=== PATIENT | male | born 1965 | race Caucasian/White ===

== ENCOUNTER 2018-03-02 06:28 | Day surgery (SDC) | payer OTHER ==
[~2018-03-02 06:28] MED LIST: CEFAZOLIN 2 GM/50 ML (PMX) 50 ML IVPB; SOD CHLORIDE 0.9% 1,000 ML IV
== END 2018-03-02 07:50 | disposition home or self-care (01) ==
LOC: SDS 06:28
DX: K40.90 Unilateral inguinal hernia, without obstruction or gangrene, not specified as recurrent (principal); Z53.8 Procedure and treatment not carried out for other reasons
CPT/HCPCS: J0690

== ENCOUNTER 2018-03-09 08:50 | Day surgery (SDC) | payer OTHER ==
[2018-03-09] MEDS: CEFAZOLIN 2 GM/50 ML (PMX) 50 ML IVPB (07:00)
[~2018-03-09 08:50] MED LIST changes: -CEFAZOLIN 2 GM/50 ML (PMX) 50 ML IVPB; +LIDOCAINE 2% (SDV) 5 ML INJ; -SOD CHLORIDE 0.9% 1,000 ML IV
[2018-03-09] MEDS: SOD CHLORIDE 0.9% 1,000 ML IV (09:38)
[2018-03-09] MEDS ORDERED: HYDROmorphONE 1 MG/5 ML IV SYRINGE IV ×3 (10:30)
[2018-03-09] MEDS ORDERED: DIPHENHYDRAMINE 50 MG INJ IV (10:30)
[2018-03-09] MEDS ORDERED: METOCLOPRAMIDE 10 MG INJ IV (10:30)
[2018-03-09] MEDS ORDERED: ALBUTEROL 0.083% (NEB) 2.5 MG/3 ML AMP HHN (10:30)
[2018-03-09] MEDS ORDERED: FENTAnyl 50 MCG/ML VIAL IV (10:30)
[2018-03-09] MEDS ORDERED: FENTAnyl 50 MCG/ML VIAL (10:55)
[2018-03-09] MEDS ORDERED: ROPIVACAINE 0.5 % 30 ML VIAL (10:55)
[2018-03-09] MEDS ORDERED: CEFAZOLIN 1 GM INJ (11:20)
[2018-03-09] MEDS ORDERED: ROCURONIUM 50 MG INJ (11:20)
[2018-03-09] MEDS ORDERED: PROPOFOL 20 ML (11:20)
[2018-03-09] MEDS ORDERED: SUGAMMADEX SODIUM 200 MG/2 ML VIAL IV (11:20)
[2018-03-09] MEDS ORDERED: SUCCINYLCHOLINE CHLORIDE 100 MG/5 ML SYG IV (11:20)
[2018-03-09] MEDS: ONDANSETRON 4 MG INJ IV (12:07)
[2018-03-09] MEDS: MEPERIDINE 25 MG INJ IV (12:08)
[2018-03-09] MEDS: FENTAnyl 50 MCG/ML VIAL IV (12:08)
[2018-03-09] MEDS: HYDROCODONE/APAP (5/325) TAB PO (13:07)
== END 2018-03-09 13:35 | disposition home or self-care (01) ==
LOC: SDS 08:50
DX: K40.30 Unilateral inguinal hernia, with obstruction, without gangrene, not specified as recurrent (principal)
CPT/HCPCS: 49507

== ENCOUNTER 2018-04-20 16:27 | Emergency (ER) | payer OTHER ==
[2018-04-20] MEDS: HYDROCODONE/APAP (10/325) TAB PO (17:42)
== END 2018-04-20 19:30 | disposition home or self-care (01) ==
LOC: FTE 16:27
DX: S32.2XXA Fracture of coccyx, initial encounter for closed fracture (principal); F17.210 Nicotine dependence, cigarettes, uncomplicated; I10 Essential (primary) hypertension; W22.8XXA Striking against or struck by other objects, initial encounter; Y92.9 Unspecified place or not applicable
CPT/HCPCS: 72131; 72220; 99284-25